=== PATIENT | female | born 1995 | race Two or more races ===

== ENCOUNTER 2017-04-27 13:13 | Inpatient (IN) | payer OTHER ==
[2017-04-27] VITALS (7 sets, daily range): BP systolic 99–125; BP diastolic 64–84
[~2017-04-27] VITALS: Ht 175.3 cm; Wt 80.7 kg
[2017-04-27] MEDS ORDERED: PRENTAB9 PO (13:37)
[2017-04-27] MEDS ORDERED: LR 1,000 ML IV SCH (14:02)
[2017-04-27] MEDS ORDERED: LACTATED RINGER'S 1000 ML IV STA (14:02)
[2017-04-27] MEDS: miSOPROStol 50 MCG 1/2 TAB (S0191) PO PRN ×2 (14:59→19:19)
[2017-04-27 15:01] LABS: MEAN CORPUSCULAR HEMOGLOBIN 26.8 pg (27.0-33.0); MEAN CORPUSCULAR HGB CONC 33.1 g/dl (32.0-36.5); RED CELL DISTRIBUTION WIDTH 14.6 % (11.5-14.5); WHITE BLOOD COUNT 10.8 10^3/uL (4.0-10.0)
--- NOTE | 2017-04-27 23:47 | IPNPDOC ---
Text Note Date of Service The patient was seen on 04/27/17. NOTE NST Cat 2, nonrepetitive infreq variables and a few late decels, periods of decreased melanie, but overall reassuring, reg ctx's most of the time Cx unchanged, still impossible to even attempt a FB Will check at 07ish. Hopefully a FB will be possible Cont cytotec if ctx pattern and FHR allow per SOP. D/W RN. Sessions VS,Yvette, I+O VSYvette I+O Laboratory Tests 04/27/17 14:46 Red Blood Count 4.41, Mean Corpuscular Volume 81.0, Mean Corpuscular Hemoglobin 26.8 L, Mean Corpuscular Hemoglobin Concent 33.1, Red Cell Distribution Width 14.6 H Vital Signs Date Time Temp Pulse Resp B/P (MAP) Pulse Ox O2 Delivery O2 Flow Rate FiO2 04/27/17 22:30 98.8 72 18 112/71 (85) I&O- Last 24 Hours up to 6 AM 04/28/17 06:00 Intake Total 1350 ml Output Total 2200 ml Balance -850 ml SESSIONS,FOSTER Velasquez MD Apr 27, 2017 23:47
[2017-04-28] VITALS (48 sets, daily range): BP systolic 83–139; BP diastolic 52–83
[2017-04-28] MEDS: miSOPROStol 50 MCG 1/2 TAB (S0191) PO PRN ×2 (00:19→05:01)
--- NOTE | 2017-04-28 07:55 | IPNPDOC ---
Text Note Date of Service The patient was seen on 04/28/17. NOTE Cat 2 with intermittent isolated late decel. Mod melanie. Pos accels. Now with Miso X4, last dose 0500 Cx /-3 Cook balloon placed easily with 80/[address] Lee at 0730 Sessions VS,Yvette, I+O VSYvette, I+O Laboratory Tests 04/27/17 14:46 Red Blood Count 4.41, Mean Corpuscular Volume 81.0, Mean Corpuscular Hemoglobin 26.8 L, Mean Corpuscular Hemoglobin Concent 33.1, Red Cell Distribution Width 14.6 H Vital Signs Date Time Temp Pulse Resp B/P (MAP) Pulse Ox O2 Delivery O2 Flow Rate FiO2 04/28/17 05:01 97.9 82 20 116/73 (87) SESSIONS,FOSTER Velasquez MD Apr 28, 2017 07:55
[2017-04-28] MEDS ORDERED: INFLUENZA QUADRIVALENT PF VACCINE 0.5ML SYRINGE (90686) IM ONE (09:00)
[2017-04-28] MEDS ORDERED: LR 1,000 ML IV SCH (14:31)
[2017-04-28] MEDS ORDERED: OXYTOCIN DRIP 30 UNITS in APPROPRIATE DILUENT 1 EA IV SCH (14:45)
[2017-04-28] MEDS ORDERED: FENTANYL 2MCG/ML ROPIVACAINE 0.2% IN 0.9% NACL 200ML IVBAG As Ordered ONE (15:44)
[2017-04-28] MEDS ORDERED: LACTATED RINGER'S 1000 ML IV PRN (17:00)
[2017-04-28] MEDS ORDERED: EPIDURAL COMMENT XX SCH (17:00)
[2017-04-28] MEDS ORDERED: ONDANSETRON 4MG/2ML VIAL (J2405) IV PRN (17:00)
[2017-04-28] MEDS ORDERED: NALOXONE INJ 0.4 MG/1 ML VIAL (J2310) IV PRN (17:00)
[2017-04-28] MEDS ORDERED: FENTANYL/ROPIVACAINE/NACL BAG 200 ML EPIDURAL SCH (17:00)
[2017-04-28] MEDS ORDERED: diphenhydrAMINE INJ 50MG/ML VIAL (J1200) IV PRN (17:00)
[2017-04-28] MEDS ORDERED: ePHEDrine SULFATE 25 MG/5 ML(5MG/ML) SYRINGE IV PRN (17:00)
[2017-04-28] MEDS ORDERED: EPIDURAL/PCA KEYS XX PRN (17:00)
[2017-04-28] MEDS ORDERED: REFRIGERATOR IV KEYS XX PRN (17:00)
[2017-04-29] MEDS ORDERED: OXYTOCIN 30 UNITS IN 0.9% NaCl 500ML IV BAG (J2590) As Ordered ONE (07:24)
[2017-04-29] MEDS ORDERED: ACETAMINOPHEN 500 MG TAB PO PRN (08:30)
[2017-04-29] MEDS ORDERED: MEASLES,MUMPS,RUBELLA VACCINE INJ (MMR-II) (90707) SC SCH (08:30)
[2017-04-29] MEDS ORDERED: RHOGAM 300 MCG (1500 IU) INJ (J2790) IM SCH (08:30)
[2017-04-29] MEDS ORDERED: IBUPROFEN 800 MG TAB PO PRN (08:30)
[2017-04-29] MEDS ORDERED: METHYLERGONOVINE MALEATE 0.2 MG TAB PO PRN (08:30)
[2017-04-29] MEDS ORDERED: MOM 30ML SUSPENSION UDC PO PRN (08:30)
[2017-04-29] MEDS ORDERED: DIBUCAINE 1% OINTMENT 30GM TOP PRN (08:30)
[2017-04-29] MEDS ORDERED: DOCUSATE SODIUM 100 MG CAP PO PRN (08:30)
[2017-04-29] MEDS: PRENATAL VITAMINS CHEWABLE TABLET PO SCH (09:00)
[2017-04-29 10:30] VITALS: BP 137/77
[2017-04-29 18:00] VITALS: BP 119/61
[2017-04-30 05:51] VITALS: BP 102/57
[2017-04-30] MEDS: PRENATAL VITAMINS CHEWABLE TABLET PO SCH (08:37)
[2017-04-30 18:22] VITALS: BP 133/88
[2017-05-01 06:00] VITALS: BP 117/65
[2017-05-01] MEDS: PRENATAL VITAMINS CHEWABLE TABLET PO SCH (09:40)
[2017-05-01] MEDS ORDERED: IBUP-1114 PO (12:08)
[2017-05-01] MEDS ORDERED: ACET50TA PO (12:08)
[2017-05-01] MEDS ORDERED: COLA100C5 PO (12:08)
== END 2017-05-01 13:20 | disposition home or self-care (01) | DRG 775 ==
LOC: M LDI 13:13 → M OBS 04-29 10:21
PROVIDERS: ADMIT Obstetrics & Gynecology; ATTEND Obstetrics & Gynecology
PROC: 3E0DXGC Introduction of Other Therapeutic Substance into Mouth and Pharynx, External Approach (ICD-10-PCS; 2017-04-27)
PROC: 10E0XZZ Delivery of Products of Conception, External Approach (ICD-10-PCS; principal; 2017-04-29)
PROC: 0HQ9XZZ Repair Perineum Skin, External Approach (ICD-10-PCS; 2017-04-29)
DX: O48.0 Post-term pregnancy (principal); Z37.0 Single live birth; O76 Abnormality in fetal heart rate and rhythm complicating labor and delivery; O77.0 Labor and delivery complicated by meconium in amniotic fluid; O70.0 First degree perineal laceration during delivery; Z3A.40 40 weeks gestation of pregnancy